=== PATIENT | male | born 1985 | race Caucasian/White ===

== ENCOUNTER → 2021-03-05 | Outpatient (CLI) | payer BC ==
[~2021-03-05] MED LIST: IOHEXOL 240 MG/ML 50ML VIAL. ONE
[2021-03-05 10:11] LABS: BASO # 0.1 x10^3/uL (0.0-0.2); BASO % 1 % (0-3); EOS # 0.5 x10^3/uL (0.0-0.7); EOS % 3 % (0-3); HEMATOCRIT 49.9 % (39.0-53.0); HEMOGLOBIN 16.1 g/dL (13.0-17.5); LYMPH # 3.5 x10^3/uL (1.0-4.8); LYMPH % 21 % (24-48); MEAN CORPUSCULAR HEMOGLOBIN 29 pg (25-35); MEAN CORPUSCULAR HGB CONC 32 g/dL (31-37); MEAN CORPUSCULAR VOLUME 90 fL (79-100); MONO # 0.9 x10^3/uL (0.0-1.1); MONO % 5 % (0-9); NEUT # 11.7 x10^3uL (1.8-7.7); NEUT % 70 % (31-73); PLATELET COUNT 250 x10^3/uL (140-400); RED BLOOD COUNT 5.56 x10^6/uL (4.30-5.70); RED CELL DISTRIBUTION WIDTH 15.3 % (11.5-14.5); WHITE BLOOD COUNT 16.7 x10^3/uL (4.0-11.0)
[2021-03-05 10:42] LABS: % BASOS 1 % (0-3); % EOS 5 % (0-5); % LYMPHS 28 % (24-48); % MONOS 8 % (0-10); % SEGS 58 % (35-66); PLT ESTIMATE ADEQUATE (ADEQUATE)
[2021-03-05 10:52] LABS: CALCIUM 9.9 mg/dL (8.5-10.1); GFR 84.1
[2021-03-05 10:53] LABS: ALBUMIN 3.9 g/dL (3.4-5.0); ALBUMIN/GLOBULIN RATIO 0.9 (1.0-1.7); TOTAL BILIRUBIN 0.8 mg/dL (0.2-1.0); TOTAL PROTEIN 8.3 g/dL (6.4-8.2)
[2021-03-05] MEDS: IOHEXOL 300 MG/ML 75 ML VIAL. IV ONE (10:54)
[2021-03-05] MEDS: IOHEXOL 240 MG/ML 50ML VIAL. PO ONE (10:54)
--- NOTE | 2021-03-05 11:37 | RAD ---
PQRS Compliance Statement: One or more of the following individualized dose reduction techniques were utilized for this examinat ion: 1. Automated exposure control 2. Adjustment of the mA and/or kV according to patient size 3. Use of iterative reconstruction technique CT ABDOMEN+PELVIS W Clinical Indication: Reason: UPPER ABD PAIN, nausea, vomiting, diarrhea. PANCREATITIS VS ACUTE CHOLEY CYSTITIS Comparison: None. Technique: Helical CT imaging of the abdomen and pelvis is performed after 75 cc of Omnipaque 300 IV contrast. Oral contrast also administered. Findings: 4 mm noncalcified nodule in the left lower lobe, image 7. There are tiny calcified granulomas bilater ally. Question 2 mm nodule in the lingula only seen on the first image. Question 4 mm nodule in the c entral right lung base seen on the first image. The cardiac size is normal. Trace pericardial fluid. There is hepatomegaly. The spleen is mildly enlarged. The gallbladder, pancreas right adrenal gland, and abdominal aorta caliber are normal. There is a 1.7 cm left adrenal nodule that is indeterminate b ased on attenuation. There is no hydronephrosis. The stomach is unremarkable. There is a 2.4 cm precaval lymph node. Tiny fat-containing umbilical her maximo. There is no dilated small bowel. The appendix is normal. No colon wall thickening is identified. The urinary bladder is normal. The prostate and seminal vesicles are normal. There is no pelvic free fluid. There are small disc osteophyte complexes of L3/L4 and L4/L5. There is narrowing of the right lateral recess at L4/L5. Previous probable cord compression at the femoral heads. IMPRESSION: 1. No acute abdominal or pelvic abnormality. 2. Hepatosplenomegaly. 3. Indeterminate left adrenal nodule. 4. Enlarged precaval lymph node. Suggest attention on subsequent imaging. 5. There are a couple of subcentimeter noncalcified pulmonary nodules. Consider CT chest follow-up i n 12 months if patient has risk factors for lung malignancy, otherwise no follow-up is required per F leischner Society guidelines. Electronically signed by: Crispin Wade MD (03/05/2021 11:34 AM) [id number]
== END ==
LOC: CT 09:42
PROVIDERS: ATTEND Family Medicine
DX: R16.1 Splenomegaly, not elsewhere classified (principal); M25.78 Osteophyte, vertebrae; R10.13 Epigastric pain; R19.7 Diarrhea, unspecified
CPT/HCPCS: 36415; 74177; 80053; 82150; 83690; 85007; 85025; Q9966; Q9967

== ENCOUNTER 2021-04-07 21:27 | Emergency (ER) | payer BC ==
[~2021-04-07] VITALS: Ht 182.9 cm; Wt 183.0 kg
[2021-04-07 21:35] VITALS: BP 124/62
--- NOTE | 2021-04-07 21:52 | PHYS DOC ---
Past History Past Medical History: Diabetes, GERD, Hypertension, Liver Disease Past Surgical History: Other Additional Past Surgical Histo: bilateral hips. Alcohol Use: None Adult General Chief Complaint Chief Complaint: ABDOMINAL PAIN HPI HPI Patient is a 36-year-old male with a past medical history of obesity, fatty liver disease and GERD who presents to the emergency department with intermittent epigastric pain for the last month, with associated nonbloody nonbilious emesis and soft stools intermittently as well. States that it appears that after he eats sometimes it gets worse but at other times he can eat without issue. States that he does have heartburn which sometimes bothers him but this particular pain does not feel the same. Denies any recent travel, traumas, fevers, chest pain, shortness of breath, rashes, dysuria, hematuria or blood in the stool. Denies any weight gain or loss. Denies any alcohol or drug use. Review of Systems Review of Systems Review of systems otherwise unremarkable except noted in HPI Allergies Allergies Allergies Coded Allergies Type Severity Reaction Last Updated Verified lisinopril Allergy Unknown 04/07/21 Yes morphine Allergy Unknown 04/07/21 Yes Physical Exam Physical Exam Constitutional: Well developed, well nourished, no acute distress, non-toxic appearance. [] HENT: Normocephalic, atraumatic, bilateral external ears normal, oropharynx moist, no oral exudates, nose normal. [] Eyes:conjunctiva normal, no discharge. [] Cardiovascular:Heart rate regular rhythm, no murmur [] Lungs & Thorax: Bilateral breath sounds clear to auscultation [] Abdomen: Bowel sounds normal, mild epigastric tenderness with no guarding or rebound, no masses, no pulsatile masses. [] Skin: Warm, dry, no erythema, no rash. [] Back: no CVA tenderness. [] Extremities: No tenderness, no cyanosis, no clubbing, ROM intact, no edema. [] Neurologic: Alert and oriented X 3, no focal deficits noted. [] Psychologic: Affect normal, judgement normal, mood normal. [] Current Patient Data Vital Signs Vital Signs Date Time Temp Pulse Resp B/P (MAP) Pulse Ox O2 Delivery O2 Flow Rate FiO2 04/07/21 21:35 97.9 102 16 124/62 (82) 91 EKG EKG [] Radiology/Procedures Radiology/Procedures [] Findings: Lower chest: Multiple small pulmonary nodules in the lower lobes, greatest in the right lung base measuring up to 5 mm, similar to prior exam. The heart is normal in size. Liver: The liver is enlarged measuring 26 cm in length and nodular in contour. There is no focal liver lesion. There is diffuse hepatic steatosis. Gallbladder/Biliary Tree: Normal. Pancreas: Normal. Spleen: Spleen is enlarged measuring 14 cm in length. Adrenal Glands: Normal. Kidneys/Ureters/Bladder: Kidneys are normal in size and enhance symmetrically. No hydronephrosis. Ureters and bladder are normal. Reproductive Organs: Prostate gland is normal. Stomach, small bowel, and colon: Stomach is normal. There is wall thickening of the duodenum with surrounding fat stranding. Mild diffuse wall thickening throughout the small bowel, which is mildly distended. The appendix is normal. There is mild diffuse wall thickening throughout most of the colon. The colon is fluid-filled. No small bowel obstruction. Vasculature: Abdominal aorta is normal caliber. Lymph Nodes: Enlarged portacaval lymph node measuring 2 cm is unchanged. Multiple small mesenteric lymph nodes are unchanged. Peritoneum and retroperitoneum: New small amount of ascites. Unchanged mild mesenteric edema. No free air. Bones: No acute osseous abnormality. There is mild degenerative disc disease. Impression: 1. Diffusely abnormal appearance of the small bowel and colon with mild bowel wall thickening, greatest in the small bowel. There is mild fat stranding along the duodenum and proximal jejunum and at the root of the mesentery. Findings are suspicious for infectious or inflammatory bowel disease. There is no small bowel obstruction. 2. Small volume ascites. 3. Hepatomegaly and hepatic steatosis. Slightly nodular appearance of the liver. 4. Splenomegaly. 5. Unchanged enlarged portacaval lymph node. 6. Unchanged small pulmonary nodules in the lung bases. In a high risk patient, optional twelve-month follow-up CT could be obtained to ensure stability. Electronically signed by: Em Glass MD (04/07/2021 10:59 PM) [id number] Heart Score C/O Chest Pain: No Risk Factors: Risk Factors: DM, Current or recent (<one month) smoker, HTN, HLP, family history of CAD, obesity. Risk Scores: Risk Factors: DM, Current or recent (<one month) smoker, HTN, HLP, family history of CAD, obesity. Course & Med Decision Making Course & Med Decision Making Patient is a 36-year-old male who presents with a month of intermittent epigastric pain associated with nausea, vomiting and soft stool Vital signs not concerning. Physical exam noted above. Patient placed on monitor with IV access established and IV fluid given. Given GI cocktail. Given Zofran for nausea and fentanyl for pain. Bedside POC ultrasound identified gallbladder with no pericholecystic fluid, or obvious stone/sludge biliary dilatation. Laboratory analysis notable for leukocytosis. CT notable for small and large bowel wall thickening greatest in the small bowel with some fat stranding around the duodenum and jejunum suspicious for infectious versus inflammatory bowel disease. Still with hepatic steatosis with splenomegaly. Started patient on antibiotics in the emergency department for enteritis/colitis. Discussed all findings with family and offered admission to the hospital for continued IV antibiotics, IV fluid, pain and nausea medicine with continued reevaluation. Patient stated that after the pain medicine, nausea medicine and fluid here in the emergency department he was feeling much better with nausea completely resolved and pain down to a 1. States he is even getting his appe tite back and was wanting to know if he could eat. Advised that if he did choose to go home instead of being admitted he needed to be on a clear liquid diet for the next several days, take antibiotics daily and pain and nausea medicine as needed. Patient and discussed this, and chose to go home instead of being admitted. Discussed the risks including worsening pain, nausea, and infection and consequences of that including disability and in the worst case scenario sepsis, hospitalization and . Patient stated he was feeling better and would come back to the emergency department if he started to feel bad again. [] Dragon Disclaimer Dragon Disclaimer This electronic medical record was generated, in whole or in part, using a voice recognition dictation system. Departure Departure: Impression: Primary Impression: Epigastric pain Additional Impressions: Nausea & vomiting Intestinal infectious disease Enteritis Colitis Disposition: HOME / SELF CARE / HOMELESS Condition: IMPROVED Referrals: CASSIA DAVIS (PCP) Patient Instructions: Colitis Additional Instructions: Please read all of the attached information carefully please. Please take all of your antibiotics as prescribed until gone. Please take your nausea medicine as discussed as well. Over the next 2 to 3 days please eat only a clear diet including things such as plain chicken soup, Jell-O and Gatorade or Pedialyte and the other things we discussed. Once you start feeling better slowly add things to your diet but she usually eat until tolerated as discussed. Please call your primary care physician first thing in the morning to update on your ED visit and set up a follow-up appointment next week if possible. Please come back to the emergency department immediately with new or concerning symptoms as discussed. Scripts Hydrocodone/Acetaminophen (Hydrocodone-Acetamin 5-325 mg) 1 Each Tablet 1 EACH PO TID for colitis for 7 Days, #21 TAB Prov: MICHELLE FAY MD 04/07/21 Ondansetron Hcl (ZOFRAN) 4 Mg Tablet 1 TAB PO PRN Q6HRS PRN for NAUSEA for 10 Days, #20 TAB 1 Refill Prov: MICHELLE FAY MD 04/07/21 Amoxicillin/Potassium Clav (AUGMENTIN 875-125 TABLET) 1 Each Tablet 1 TAB PO BID for bowel infection for 10 Days, #20 TAB 0 Refills Prov: MICHELLE FAY MD 04/07/21 Problem Qualifiers MICHELLE FAY MD April 07, 2021 21:52
[2021-04-07] MEDS ORDERED: CONTRAST GIVEN. MC PRN (22:00)
[2021-04-07] MEDS: IV RINGERS SOLUTION,LACTATED 1,000 ML IV ONE (22:03)
[2021-04-07] MEDS: ONDANSETRON PF 4 MG/2 ML VIAL. IVP ONE (22:04)
[2021-04-07] MEDS: LIDO:MAALOX 1:1 20 ML SINGLE DOSE. PO ONE (22:04)
[2021-04-07 22:13] LABS: BASO # 0.3 x10^3/uL (0.0-0.2); BASO % 2 % (0-3); EOS # 0.3 x10^3/uL (0.0-0.7); EOS % 2 % (0-3); HEMOGLOBIN 17.3 g/dL (13.0-17.5); LYMPH # 4.2 x10^3/uL (1.0-4.8); LYMPH % 27 % (24-48); MEAN CORPUSCULAR HEMOGLOBIN 29 pg (25-35); MEAN CORPUSCULAR HGB CONC 33 g/dL (31-37); MEAN CORPUSCULAR VOLUME 90 fL (79-100); MONO # 0.7 x10^3/uL (0.0-1.1); MONO % 5 % (0-9); NEUT % 65 % (31-73); PLATELET COUNT 224 x10^3/uL (140-400); RED BLOOD COUNT 5.88 x10^6/uL (4.30-5.70); RED CELL DISTRIBUTION WIDTH 16.2 % (11.5-14.5); WHITE BLOOD COUNT 15.4 x10^3/uL (4.0-11.0)
[2021-04-07 22:20] LABS: CALCIUM 9.1 mg/dL (8.5-10.1); CREATININE 1.1 mg/dL (0.7-1.3); GFR 75.3; POTASSIUM 3.9 mmol/L (3.5-5.1)
[2021-04-07 22:26] LABS: ALBUMIN 3.5 g/dL (3.4-5.0); ALBUMIN/GLOBULIN RATIO 0.9 (1.0-1.7); TOTAL BILIRUBIN 0.3 mg/dL (0.2-1.0); TOTAL PROTEIN 7.5 g/dL (6.4-8.2)
[2021-04-07] MEDS: IOHEXOL 300 MG/ML 75 ML VIAL. IV ONE (22:33)
--- NOTE | 2021-04-07 23:01 | RAD ---
Exam: CT abdomen/pelvis with intravenous contrast Indication: Epigastric pain with nausea vomiting and diarrhea Comparison: CT abdomen and pelvis 03/05/2021 Technique: Helical CT imaging performed of the abdomen and pelvis after the intravenous administratio n of 75 mL Omnipaque 300 contrast. Sagittal and coronal reformats were obtained. One or more of the following individualized dose reduction techniques were utilized for this examinat ion: 1. Automated exposure control 2. Adjustment of the mA and/or kV according to patient size 3. Use of iterative reconstruction technique. Findings: Lower chest: Multiple small pulmonary nodules in the lower lobes, greatest in the right lung base meredith suring up to 5 mm, similar to prior exam. The heart is normal in size. Liver: The liver is enlarged measuring 26 cm in length and nodular in contour. There is no focal live r lesion. There is diffuse hepatic steatosis. Gallbladder/Biliary Tree: Normal. Pancreas: Normal. Spleen: Spleen is enlarged measuring 14 cm in length. Adrenal Glands: Normal. Kidneys/Ureters/Bladder: Kidneys are normal in size and enhance symmetrically. No hydronephrosis. Ure ters and bladder are normal. Reproductive Organs: Prostate gland is normal. Stomach, small bowel, and colon: Stomach is normal. There is wall thickening of the duodenum with umer rounding fat stranding. Mild diffuse wall thickening throughout the small bowel, which is mildly dist ended. The appendix is normal. There is mild diffuse wall thickening throughout most of the colon. Th e colon is fluid-filled. No small bowel obstruction. Vasculature: Abdominal aorta is normal caliber. Lymph Nodes: Enlarged portacaval lymph node measuring 2 cm is unchanged. Multiple small mesenteric ly mph nodes are unchanged. Peritoneum and retroperitoneum: New small amount of ascites. Unchanged mild mesenteric edema. No free air. Bones: No acute osseous abnormality. There is mild degenerative disc disease. Impression: 1. Diffusely abnormal appearance of the small bowel and colon with mild bowel wall thickening, great est in the small bowel. There is mild fat stranding along the duodenum and proximal jejunum and at th e root of the mesentery. Findings are suspicious for infectious or inflammatory bowel disease. There is no small bowel obstruction. 2. Small volume ascites. 3. Hepatomegaly and hepatic steatosis. Slightly nodular appearance of the liver. 4. Splenomegaly. 5. Unchanged enlarged portacaval lymph node. 6. Unchanged small pulmonary nodules in the lung bases. In a high risk patient, optional twelve-jacques h follow-up CT could be obtained to ensure stability. Electronically signed by: Em Glass MD (04/07/2021 10:59 PM) [id number]
[2021-04-07 23:07] LABS: % LYMPHS 23 % (24-48); % MONOS 3 % (0-10); % SEGS 74 % (35-66); PLT ESTIMATE ADEQUATE (ADEQUATE)
[2021-04-07] MEDS ORDERED: HYDR-2759 PO (23:29)
[2021-04-07] MEDS ORDERED: AMOX1TAB61 PO (23:29)
[2021-04-07] MEDS ORDERED: ONDA4TAB7 PO (23:29)
[2021-04-07] MEDS: ONDANSETRON ODT 4 MG TAB.RAPDIS PO ONE (23:36)
[2021-04-07] MEDS: oxyCODONE/APAP 5/325 1 TAB TABLET PO ONE (23:36)
[2021-04-07] MEDS: AMOXICILLIN/K CLAV 875/125MG TABLET. PO ONE (23:36)
== END 2021-04-07 23:44 | disposition home or self-care (01) ==
LOC: ER 21:27
DX: K52.9 Noninfective gastroenteritis and colitis, unspecified (principal); K63.89 Other specified diseases of intestine; R10.13 Epigastric pain; R11.2 Nausea with vomiting, unspecified; E11.9 Type 2 diabetes mellitus without complications; K21.9 Gastro-esophageal reflux disease without esophagitis; I10 Essential (primary) hypertension; E66.9 Obesity, unspecified; Z68.43 Body mass index [BMI] 50.0-59.9, adult; Z88.8 Allergy status to other drugs, medicaments and biological substances; Z88.5 Allergy status to narcotic agent
CPT/HCPCS: 36415; 74177; 80053; 83690; 85007; 85025; 96361; 96374; 96375; 99285; J2405; J3010; J7120; Q0162; Q9967

== ENCOUNTER 2021-12-12 03:03 | Emergency (ER) | payer BC ==
[~2021-12-12] VITALS: Ht 182.9 cm; Wt 183.0 kg
[~2021-12-12 03:03] MED LIST changes: +AMOX1TAB61 PO; +HYDR-2759 PO; -IOHEXOL 240 MG/ML 50ML VIAL. ONE; +ONDA4TAB7 PO
--- NOTE | 2021-12-12 03:08 | PHYS DOC ---
Past History Past Medical History: Arthritis, Diabetes, GERD, Hypertension, Liver Disease Past Surgical History: Other Additional Past Surgical Histo: bilateral hips. Smoking: Cigarettes Alcohol Use: None General Adult HPI: HPI: ".. I am sick.. ".. " I short of breath..." ".I am vomiting.. ".. " I am nauseated.." " I am just fucking sick.." .." I got the shits...".. " I ve been fuckng sick for months..." Patient is a 36 year old male who presents with above hx and complaints of increases shortness of breath, patient has a past history of diabetes, GERD, hypertension, liver disease, arthritis, inflammatory bowel disease, colitis, enteritis, morbid obesity and history of noncompliance. Pt. follows with Dr. Tahmina Jones. Patient has not gotten flu vaccination for this season. Patient has not gotten Covid vaccination. No recent travel. No specific ill contacts. Review of Systems: Review of Systems: Constitutional: Complains of fever or chills Eyes: Denies change in visual acuity HENT: Denies nasal congestion or sore throat Respiratory: Complains of cough or shortness of breath Cardiovascular: Denies chest pain or edema GI: Complains of,nausea, vomiting, and diarrhea : Denies dysuria Musculoskeletal: Complains of joint pain Integument: Denies rash Neurologic: Denies headache, focal weakness or sensory changes Endocrine: Denies polyuria or polydipsia Lymphatic: Denies swollen glands Psychiatric: Denies depression or anxiety Family History: Family History: Noncontributory to presentation Current Medications: Current Meds: See Nursing for home meds Allergies: Allergies: Allergies Coded Allergies Type Severity Reaction Last Updated Verified lisinopril Allergy Unknown 04/07/21 Yes morphine Allergy Unknown 04/07/21 Yes Physical Exam: PE: Constitutional: Moderated acute distress, non-toxic appearance. [] HENT: Normocephalic, atraumatic, bilateral external ears normal, oropharynx moist, no oral exudates, nose normal. [] Eyes: PERRLA, EOMI, conjunctiva normal, no discharge. [] Neck: Normal range of motion, no tenderness, supple, no stridor. [] Cardiovascular: Tachycardia heart rate regular rhythm, no murmur []. The p atient occasionally has skipped beats. Lungs & Thorax: Bilateral breath sounds equal apex with scattered crackles and wheezing on auscultation [] Abdomen: Bowel sounds hyperacitve, soft, no tenderness, no masses, no pulsatile masses. Stooling diarrhea. Morbid obesity. Skin: Warm, diaphoretic, no erythema, no rash. [] Back: No tenderness, no CVA tenderness. [] Extremities: No tenderness, no cyanosis, no clubbing, ROM intact, no edema. Hip scars. Neurologic: Alert and oriented X 3, normal motor function, normal sensory function, no focal deficits noted. [] Psychologic: Affect argumentative & uncooperative, judgement normal, mood normal. [] EKG: EKG: Initially refusing EKG .[] My interpretation EKG shows a sinus tachycardia 111 bpm. No findings of acute STEMI of contralateral changes. Time of EKG is 339 hours Radiology/Procedures: Radiology/Procedures: My interpretation EKG shows cardiomegaly and some cephalization. No large pulmonary consolidations. CXR reading pending at shift change. [] Heart Score: C/O Chest Pain: No HEART Score for Chest Pain: HEART Score for Chest Pain Response (Comments) Value History Moderately Suspicious 1 ECG Nonspecific Repolarizatio 1 Age < 45 0 Risk Factors 1 or 2 Risk Factors 1 Troponin < Normal Limit 0 Total 3 Risk Factors: Risk Factors: DM, Current or recent (<one month) smoker, HTN, HLP, family history of CAD, obesity. Risk Scores: Score 0 - 3: 2.5% MACE over next 6 weeks - Discharge Home Score 4 - 6: 20.3% MACE over next 6 weeks - Admit for Clinical Observation Score 7 - 10: 72.7% MACE over next 6 weeks - Early Invasive Strategies Course & Med Decision Making: Course & Med Decision Making Pertinent Labs and Imaging studies reviewed. (See chart for details) Pt. endorse to Dr. Christianson at shift change pending transfer. , [facility] accepting. Dr. Limon accepting attending. Calls have been placed to [facility] for placement. Current all ICU nurses at [facility] have called in - No staff to open ICU. Most are off with COVID infections. Impression: 1. Sirs/ Sepsis 2. Colitis 3. Leukocytosis 17.2 4. Metabolic Acidosis 7., 218 ( some respiratory contribution) 5. Elevated Lactic Acid- 7.1 6. DM - glucose currently 205 7. Elevated D-dimer 6.39 8. Respiratory Insuf. Hypoxia 60 and hypercarbia 55.6 9. Dehydration [] Dragon Disclaimer: Dragon Disclaimer: This electronic medical record was generated, in whole or in part, using a voice recognition dictation system. Departure Departure: Referrals: TAHMINA JONES (PCP) [place] Disclaimer This chart was dictated in whole or in part using Voice Recognition software in a busy, high-work load, and often noisy Emergency Department environment. It may contain unintended and wholly unrecognized errors or omissions. Dragon Disclaimer This chart was dictated in whole or in part using Voice Recognition software in a busy, high-work load, and often noisy Emergency Department environment. It may contain unintended and wholly unrecognized errors or omissions. Dragon Disclaimer This chart was dictated in whole or in part using Voice Recognition software in a busy, high-work load, and often noisy Emergency Department environment. It may contain unintended and wholly unrecognized errors or omissions. ROSALBA ALCANTAR MD Dec 12, 2021 03:08
[2021-12-12] MEDS ORDERED: ONDANSETRON PF 4 MG/2 ML VIAL. ONE (03:17)
[2021-12-12] MEDS ORDERED: ALBUTEROL SULFATE 8GM INHALER. INH ONE (03:30)
[2021-12-12] MEDS ORDERED: IV RINGERS SOLUTION,LACTATED 1,000 ML IV SCH (03:30)
[2021-12-12 03:50] LABS: CREATININE 1.2 mg/dL (0.7-1.3); GFR 68.1; POTASSIUM 3.7 mmol/L (3.5-5.1)
[2021-12-12 03:52] LABS: BASO # 0.2 x10^3/uL (0.0-0.2); BASO % 1 % (0-3); EOS % 0 % (0-3); HEMATOCRIT 54.5 % (39.0-53.0); LYMPH # 11.7 x10^3/uL (1.0-4.8); LYMPH % 68 % (24-48); MEAN CORPUSCULAR HEMOGLOBIN 29 pg (25-35); MEAN CORPUSCULAR HGB CONC 31 g/dL (31-37); MEAN CORPUSCULAR VOLUME 94 fL (79-100); MONO # 0.3 x10^3/uL (0.0-1.1); MONO % 2 % (0-9); NEUT % 29 % (31-73); PLATELET COUNT 338 x10^3/uL (140-400); RED BLOOD COUNT 5.83 x10^6/uL (4.30-5.70); WHITE BLOOD COUNT 17.2 x10^3/uL (4.0-11.0)
[2021-12-12 03:56] LABS: INFLUENZA A PATIENT NEGATIVE (NEGATIVE); INFLUENZA B PATIENT NEGATIVE (NEGATIVE)
[2021-12-12] MEDS ORDERED: ONDANSETRON PF 4 MG/2 ML VIAL. IVP ONE (04:00)
[2021-12-12 04:03] LABS: ALBUMIN 3.2 g/dL (3.4-5.0); DIRECT BILIRUBIN 0.1 mg/dL (0.0-0.2); MAGNESIUM 2.3 mg/dL (1.8-2.4); TOTAL BILIRUBIN 0.3 mg/dL (0.2-1.0); TOTAL PROTEIN 6.7 g/dL (6.4-8.2)
[2021-12-12 04:39] LABS: % LYMPHS 75 % (24-48); % MONOS 3 % (0-10); % SEGS 22 % (35-66); PLT ESTIMATE ADEQUATE (ADEQUATE)
[2021-12-12 04:40] LABS: ANISOCYTOSIS SLIGHT
[2021-12-12] MEDS ORDERED: VANCOMYCIN 1 GM in IV NORMAL SALINE 250ML 250 ML IV ONE (05:00)
--- NOTE | 2021-12-12 05:15 | EKG ---
[address] [address] Test Date: 2021-12-12 Test Time: 03:39:28 Pat Name: NGOC ESPARZA Department: Room: Gender: M Spool Tender: : 1985 Requested By: ROSALBA ALCANTAR Order Number: [id number] Reading MD: Luis Soto Measurements Intervals [place] Rate: 111 P: 45 VT: 122 QRS: 64 QRSD: 96 T: 30 QT: 356 QTc: 488 Interpretive Statements SINUS TACHYCARDIA Electronically Signed On 12-12-2021 9:19:36 NECK BAND SETTER by Luis Soto
[2021-12-12 05:17] LABS: BGAS PH 7.22 (7.35-7.46)
[2021-12-12] MEDS ORDERED: ENOXAPARIN ** NOTE DOSE ** SYRINGE SQ ONE (05:30)
[2021-12-12] MEDS ORDERED: IV RINGERS SOLUTION,LACTATED 1,000 ML IV ONE (05:30)
[2021-12-12] MEDS ORDERED: VANCOMYCIN 2 GM in IV NORMAL SALINE 500ML 500 ML IV ONE (05:30)
[2021-12-12] MEDS ORDERED: IV NORMAL SALINE 50ML 50 ML ONE (05:39)
[2021-12-12] MEDS ORDERED: IV NORMAL SALINE 500ML 500 ML ONE (05:39)
[2021-12-12] MEDS ORDERED: cefTRIAXone SODIUM 1 GM VIAL ONE (05:40)
[2021-12-12] MEDS ORDERED: VANCOMYCIN 1 GM VIAL. ONE (05:40)
[2021-12-12] MEDS ORDERED: SODIUM BICARB ADULT 8.4% 50 MEQ/50 ML DISP.SYRIN. IV ONE (06:00)
--- NOTE | 2021-12-12 06:15 | RAD ---
EXAM: CHEST ONE VIEW. HISTORY: Chest pain, dyspnea. COMPARISON: None. FINDINGS: A frontal view of the chest is obtained. There are no confluent infiltrates. There is no pneumothorax or pleural effusion. The heart is not en larged. IMPRESSION: 1. No confluent infiltrates. Electronically signed by: Uche Allen MD (12/12/2021 6:12 AM) [id number]
[2021-12-12 08:30] VITALS: BP 107/57
== END 2021-12-12 08:38 | disposition short-term general hospital (02) ==
LOC: ER 03:03
DX: K52.9 Noninfective gastroenteritis and colitis, unspecified (principal); D72.829 Elevated white blood cell count, unspecified; E87.2 Acidosis; R74.02 Elevation of levels of lactic acid dehydrogenase [LDH]; E11.9 Type 2 diabetes mellitus without complications; R79.1 Abnormal coagulation profile; E86.0 Dehydration; R09.02 Hypoxemia; R06.89 Other abnormalities of breathing; M19.90 Unspecified osteoarthritis, unspecified site; K21.9 Gastro-esophageal reflux disease without esophagitis; I10 Essential (primary) hypertension; F17.210 Nicotine dependence, cigarettes, uncomplicated; Z20.822 Contact with and (suspected) exposure to COVID-19; Z88.5 Allergy status to narcotic agent; Z88.8 Allergy status to other drugs, medicaments and biological substances
CPT/HCPCS: 36415; 71045; 80048; 80076; 82550; 82803; 83605; 83690; 83735; 83880; 84443; 84484; 85007; 85025; 85379; 85610; 85730; 87040; 87428; 93005; 94640; 96361; 96365; 96368; 96372; 96375; 99285; G0480; J0696; J1650; J2405; J3370; J7040; J7120; 94664